=== PATIENT | male | born 1965 | race African-American/Black ===

== ENCOUNTER 2020-05-28 13:48 | Emergency (ER) | payer SELFPAY ==
[~2020-05-28] VITALS: Ht 185.4 cm; Wt 160.0 kg
[2020-05-28] MEDS ORDERED: PIPERACILLIN/TAZOBACTAM 4.5 GM in IV NORMAL SALINE 50ML 50 ML IV ONE (14:15)
[2020-05-28] MEDS ORDERED: IV NORMAL SALINE 100ML 100 ML ONE (14:58)
--- NOTE | 2020-05-28 15:01 | RAD ---
PROCEDURE: XR HAND_RIGHT 3 VIEWS, XR FOREARM_RIGHT 2 VIEWS STUDY DATE: 05/28/2020 CLINICAL INDICATION / HISTORY: Reason: ACUTE INFECTIOUS PROCESS / Spl. Instructions: / History: . TECHNIQUE: PA, lateral and oblique views of the right hand. COMPARISON: None FINDINGS: No acute fracture or dislocation is identified. There is deformity to the mid shaft of the proximal fourth phalanx with radial sided bony spurring, compatible with an old, healed fracture with residual deformity. In addition, on the ulnar aspect of the base of the third proximal phalanx, luce ncy is seen that could reflect sequelae of previous fracture. There is deformity to the fourth metaca rpal shaft, consistent with a well healed fracture. The bone density is otherwise normal. The joint s paces are maintained, and there are no erosions to suggest an inflammatory arthropathy. The soft tiss ues are unremarkable. IMPRESSION: Multiple old fractures, with deformity at the base of the proximal third phalanx at the M CP joint, likely reflecting old intra-articular fracture without complete healing. No acute or aggres sive appearing osseous lesions in the right hand on x-ray. PROCEDURE: XR HAND_RIGHT 3 VIEWS, XR FOREARM_RIGHT 2 VIEWS STUDY DATE: 05/28/2020 CLINICAL INDICATION / HISTORY: Reason: ACUTE INFECTIOUS PROCESS / Spl. Instructions: / History: . TECHNIQUE: Right forearm 2 views. AP and lateral views. COMPARISON: None FINDINGS: No fracture or dislocation is identified. The bone density appears normal. The wrist and e lbow joints are approximated. No soft tissue abnormality is seen. IMPRESSION: No abnormality identified. Electronically signed by: Jaz Miramontes MD (05/28/2020 2:58 PM) [id number]
[2020-05-28 15:07] LABS: CALCIUM 9.6 mg/dL (8.5-10.1); CREATININE 1.1 mg/dL (0.7-1.3); GFR 84.7; POTASSIUM 4.4 mmol/L (3.5-5.1)
[2020-05-28 15:08] LABS: BASO # 0.1 x10^3/uL (0.0-0.2); BASO % 1 % (0-3); EOS # 0.1 x10^3/uL (0.0-0.7); EOS % 2 % (0-3); HEMATOCRIT 41.6 % (39.0-53.0); HEMOGLOBIN 13.5 g/dL (13.0-17.5); LYMPH # 2.1 x10^3/uL (1.0-4.8); LYMPH % 25 % (24-48); MEAN CORPUSCULAR HEMOGLOBIN 30 pg (25-35); MEAN CORPUSCULAR HGB CONC 32 g/dL (31-37); MEAN CORPUSCULAR VOLUME 94 fL (79-100); MONO # 0.6 x10^3/uL (0.0-1.1); MONO % 7 % (0-9); NEUT # 5.6 x10^3uL (1.8-7.7); NEUT % 66 % (31-73); PLATELET COUNT 245 x10^3/uL (140-400); RED BLOOD COUNT 4.45 x10^6/uL (4.30-5.70); RED CELL DISTRIBUTION WIDTH 14.3 % (11.5-14.5); WHITE BLOOD COUNT 8.5 x10^3/uL (4.0-11.0)
[2020-05-28] MEDS ORDERED: IV NORMAL SALINE 50ML 50 ML ONE (15:08)
[2020-05-28] MEDS ORDERED: PIPERACILLIN/TAZOBACTAM 4.5 GM VIAL IV ONE (15:08)
--- NOTE | 2020-05-28 15:09 | PHYS DOC ---
Adult General Chief Complaint Chief Complaint: CELLULITIS HPI HPI Patient is a 55-year-old male presents emergency department with complaints of right hand and forearm swelling. Patient states he woke up at approximately 3 AM to use the restroom when he noticed his right hand with itching. Patient states that at that time his right forearm was not itching but progressed to where it started become uncomfortable for him. Patient states that his hand was swelling and he noticed his right forearm started to swell throughout the day. Patient states that he cannot close his right hand into a fist all the way related to mild discomfort and hand swelling. Patient states that he did not injure his hand, he is not sure if he was bit by an insect as he did not see any insects around and does not see any particular place on his hand or forearm that resembles an insect bite. Patient denies any numbness or tingling of the right forearm or hand or fingers. Patient denies any fever or chills, denies dizziness, denies short of breath, denies unusual salivation, denies watery eyes, denies nasal drainage, denies cough, denies chest pain, denies chest palpitations. Patient denies any rashes of his skin, denies any lesions on his skin. Patient denies any symptoms of allergic reaction or hives. Patient denies any recent loss of taste or loss of smell. Patient denies nausea, vomiting, diarrhea, or abdominal discomfort. Patient states no one else in his home is experiencing the same symptoms as he. (ISELA ROBLES APRN) Review of Systems Review of Systems 14 body systems of review of systems have been reviewed. See HPI for pertinent positives and negative responses, otherwise all other systems are negative, nonpertinent or noncontributory. (ISELA ROBLES APRN) Current Medications Current Medications Patient denies current home medications. Current Medications Medications (Trade) Dose Ordered Sig/Kevyn Start Time Stop Time Status Last Admin Dose Admin Ceftriaxone Sodium 2 gm/ Sodium Chloride 100 ml @ 200 mls/hr 1X ONCE 05/28/20 14:15 05/28/20 14:44 DC Ceftriaxone Sodium (Rocephin) 2 gm STK-MED ONCE 05/28/20 14:58 05/28/20 14:59 DC Piperacillin Sod/ Tazobactam Sod 4.5 gm/Sodium Chloride 50 ml @ 100 mls/hr 1X ONCE 05/28/20 14:15 05/28/20 14:44 DC Sodium Chloride 100 ml @ As Directed STK-MED ONCE 05/28/20 14:58 05/28/20 14:59 DC (ISELA ROBLES APRN) Allergies Allergies Allergies Coded Allergies Type Severity Reaction Last Updated Verified No Known Drug Allergies 05/28/20 No (ISELA ROBLES APRN) Physical Exam Physical Exam Constitutional: Well developed, well nourished, no acute distress, non-toxic appearance. HENT: Normocephalic, atraumatic, bilateral external ears normal, oropharynx moist, no oral exudates, nose normal. Eyes: PERRLA, EOMI, conjunctiva normal, no discharge. Neck: Normal range of motion, no tenderness, supple, no stridor. Cardiovascular:Heart rate regular rhythm, no murmur Lungs & Thorax: Bilateral breath sounds clear to auscultation Abdomen: Bowel sounds normal, soft, no tenderness, no masses, no pulsatile masses. Skin: Warm, dry, no rash. Mild erythema to dorsal skin surface right hand and anterior skin surface right forearm extending 10 cm proximal to wrist. Red streaking not appreciated. Back: No tenderness, no CVA tenderness. Extremities: No tenderness, no cyanosis, no clubbing, ROM intact, no edema. Right hand full extension of phalanges, patient unable to close fist completely related to mild swelling to dorsal surface right hand, palmar surface without visual discrepancies, patient has an area of induration that extends from his wrist 10 cm proximal into forearm. No loss of sensation, distal cap refill less than 2 seconds, no compartment syndrome appreciated, patient is neurovascular intact. No skin lesions appreciated, no drainage noted. Skin intact. Neurologic: Alert and oriented X 3, normal motor function, normal sensory function, no focal deficits noted. Psychologic: Affect normal, judgement normal, mood normal. (ISELA ROBLES APRN) Current Patient Data Vital Signs Patient's vital signs were stable and within normal limits during physical exam. Lab Results Laboratory Tests Test 05/28/20 14:30 White Blood Count 8.5 x10^3/uL Red Blood Count 4.45 x10^6/uL Hemoglobin 13.5 g/dL Hematocrit 41.6 % Mean Corpuscular Volume 94 fL Mean Corpuscular Hemoglobin 30 pg Mean Corpuscular Hemoglobin Concent 32 g/dL Red Cell Distribution Width 14.3 % Platelet Count 245 x10^3/uL Neutrophils (%) (Auto) 66 % Lymphocytes (%) (Auto) 25 % Monocytes (%) (Auto) 7 % Eosinophils (%) (Auto) 2 % Basophils (%) (Auto) 1 % Neutrophils # (Auto) 5.6 x10^3uL Lymphocytes # (Auto) 2.1 x10^3/uL Monocytes # (Auto) 0.6 x10^3/uL Eosinophils # (Auto) 0.1 x10^3/uL Basophils # (Auto) 0.1 x10^3/uL Sodium Level 137 mmol/L Potassium Level 4.4 mmol/L Chloride Level 101 mmol/L Carbon Dioxide Level 30 mmol/L Anion Gap 6 Blood Urea Nitrogen 11 mg/dL Creatinine 1.1 mg/dL Estimated GFR (Cockcroft-Gault) 84.7 BUN/Creatinine Ratio 10 Glucose Level 75 mg/dL Lactic Acid Level 2.0 mmol/L Calcium Level 9.6 mg/dL Total Bilirubin 0.2 mg/dL Aspartate Amino Transf (AST/SGOT) 19 U/L Alanine Aminotransferase (ALT/SGPT) 23 U/L Alkaline Phosphatase 76 U/L Total Protein 7.6 g/dL Albumin 4.0 g/dL Albumin/Globulin Ratio 1.1 Current Medications Medications (Trade) Dose Ordered Sig/Kevyn Route PRN Reason Start Time Stop Time Status Last Admin Dose Admin Piperacillin Sod/ Tazobactam Sod 4.5 gm/Sodium Chloride 50 ml @ 100 mls/hr 1X ONCE IV 05/28/20 14:15 05/28/20 14:44 DC 05/28/20 14:15 Ceftriaxone Sodium 2 gm/ Sodium Chloride 100 ml @ 200 mls/hr 1X ONCE IV 05/28/20 14:15 05/28/20 14:44 DC 05/28/20 15:10 Ceftriaxone Sodium (Rocephin) 2 gm STK-MED ONCE IV 05/28/20 14:58 05/28/20 14:59 DC Sodium Chloride 100 ml @ As Directed STK-MED ONCE .ROUTE 05/28/20 14:58 05/28/20 14:59 DC Sodium Chloride 50 ml @ As Directed STK-MED ONCE .ROUTE 05/28/20 15:08 05/28/20 15:08 DC Piperacillin Sod/ Tazobactam Sod (Zosyn) 4.5 gm STK-MED ONCE IV 05/28/20 15:08 05/28/20 15:08 DC (ISELA ROBLES APRN) EKG EKG [] (ISELA ROBLES APRN) Radiology/Procedures Radiology/Procedures STATUS: REG ER ORD. PHYSICIAN: ISELA ROBLES APRN REASON: ACUTE INFECTIOUS PROCESS PROCEDURE: HAND RIGHT 3V PROCEDURE: XR HAND_RIGHT 3 VIEWS, XR FOREARM_RIGHT 2 VIEWS STUDY DATE: 05/28/2020 CLINICAL INDICATION / HISTORY: Reason: ACUTE INFECTIOUS PROCESS / Spl. Instructions: / History: . TECHNIQUE: PA, lateral and oblique views of the right hand. COMPARISON: None FINDINGS: No acute fracture or dislocation is identified. There is deformity to the mid shaft of the proximal fourth phalanx with radial sided bony spurring, compatible with an old, healed fracture with residual deformity. In addition, on the ulnar aspect of the base of the third proximal phalanx, lucency is seen that could reflect sequelae of previous fracture. There is deformity to the fourth metacarpal shaft, consistent with a well healed fracture. The bone density is otherwise normal. The joint spaces are maintained, and there are no erosions to suggest an inflammatory arthropathy. The soft tissues are unremarkable. IMPRESSION: Multiple old fractures, with deformity at the base of the proximal third phalanx at the MCP joint, likely reflecting old intra-articular fracture without complete healing. No acute or aggressive appearing osseous lesions in the right hand on x-ray. PROCEDURE: XR HAND_RIGHT 3 VIEWS, XR FOREARM_RIGHT 2 VIEWS STUDY DATE: 05/28/2020 CLINICAL INDICATION / HISTORY: Reason: ACUTE INFECTIOUS PROCESS / Spl. Instructions: / History: . TECHNIQUE: Right forearm 2 views. AP and lateral views. COMPARISON: None FINDINGS: No fracture or dislocation is identified. The bone density appears normal. The wrist and elbow joints are approximated. No soft tissue abnormality is seen. IMPRESSION: No abnormality identified. Electronically signed by: Emmanuelle Miramontes MD (05/28/2020 2:58 PM) [id number] DICTATED AND SIGNED BY: EMMANUELLE MIRAMONTES MD DATE: 05/28/20 1454 CC: ISELA ROBLES APRN; SHAUNA WAY DO; PCP,NO ~MTH0 0 Impressions: Primary impression: Cellulitis of the right forearm and hand. (ISELA ROBLES APRN) Heart Score Risk Factors: Risk Factors: DM, Current or recent (<one month) smoker, HTN, HLP, family history of CAD, obesity. Risk Scores: Risk Factors: DM, Current or recent (<one month) smoker, HTN, HLP, family history of CAD, obesity. (ISELA ROBLES APRN) Course & Med Decision Making Course & Med Decision Making Pertinent Labs and Imaging studies reviewed. (See chart for details) 55-year-old male presents emergency department complaining of itching and redness with swelling to the right hand and distal forearm. Concerning for tissue infection versus allergic reaction. Area was erythematous with induration noted and physical exam. Patient's labs were drawn and resulted unremarkable for infectious process, however an IV was established and 4.5 g Zosyn followed by 2 g Rocephin were given IV. This is nonconcerning for deep tissue infection, unlikely compartment syndrome. The patient's vital signs were stable throughout ER stay. The patient was not hyperthermic nor hypothermic. Areas of erythema and induration were marked with skin marker, discussed inpatient treatment versus home trial with antibiotics, patient has decided he will will try home trial of p.o. antibiotics, patient given strict return to ER precautions with recommendations of inpatient treatment if needed. Patient gave verbal understanding of home care instructions, follow-up with his doctor soon for reevaluation, return to emergency department for worsening signs and sympto ms, patient had no further questions or concerns, patient discharged home without incident. (ISELA ROBLES APRN) Course & Med Decision Making I oversaw on the above date of service of this patient and discussed the care with the MILL FEEDER. I personally saw patient and repeated certain aspects of history and physical exam. No emergent and/or surgical findings but patient presentation consistent for cellulitis requiring antibiotic intervention and close outpatient follow-up to avoid potential need for admission and subsequent IV antibiotics. Overall, I agree with the findings, plan of care, and dispo sition as documented. (SHAUNA WAY DO) Dragon Disclaimer Dragon Disclaimer This electronic medical record was generated, in whole or in part, using a voice recognition dictation system. (ISELA ROBLES APRN) Departure Departure: Impression: Primary Impression: Cellulitis Disposition: 01 DC HOME SELF CARE/HOMELESS Condition: STABLE Referrals: PCP,NO (PCP) Patient Instructions: Cellulitis Additional Instructions: You have a skin infection of the right forearm and hand that we call cellulitis, we have discussed inpatient treatment versus home trial with antibiotics. You have elected to try antibiotics by mouth at home. Please return to the em ergency department immediately for consideration of inpatient treatment if the skin infection is not considerably better by tomorrow or worsens. Please follow-up with your primary care physician within 3 days for a reevaluation of your skin infection. You will be taken Augmentin 2 times a day for the next 10 days. EMERGENCY DEPARTMENT GENERAL DISCHARGE INSTRUCTIONS Thank you for coming to [facility] (ED) today and trusting us with you care. We trust that you had a positivie experience in our Emergency Department. If you wish to speak to the department management, you may call the director at [phone]. YOUR FOLLOW UP INSTRUCTIONS ARE FOLLOWS: 1. Do you have a private Doctor? If you do not have a private doctor, please a sk for a resource list of physicians or clinics that may be able to assist you with follow up care. 2. The Emergency Physician has interpreted your x-rays. The X-Ray specialist will also review them. If there is a change in the findings, you will be notified in 48 hours when at all possible. 3. A lab test or culture has been done, your results will be reviewed and you will be notified if you need a change in treatment. ADDITIONAL INSTRUCTIONS AND INFORMATION: 1. Your care today has been supervised by a physician who is specially trained in emergency care. Many problems require more than one evaluation for a complete diagnosis and treatment. We recommend that you schedule your follow up appointment as recommended to ensure complete treatment of you illness or injury. If you are unable to obtain follow up care and continue to have a problem, or if your condition worsens, we recommend that you return to the ED. 2. We are not able to safely determine your condition over the phone nor are we able to give sound medical advice over the phone. For these safety reasons, if you call for medical advice we will ask you to come to the ED for further evaluation. 3. If you have any questions regarding these discharge instructions please call the ED at [phone]. SAFETY INFORMATION: In the interest of safety, wellness, and injury prevention; we encourage you to wear your sealbelt, if you smoke; quite smoking, and we encourage family to use a protective helmet for bicycling and other sporting events that present an increased risk for head injury. IF YOUR SYMPTOMS WORSEN OR NEW SYMPTOMS DEVELOP, OR YOU HAVE CONCERNS ABOUT YOUR CONDITION; OR IF YOUR CONDITION WORSENS WHILE YOU ARE WAITING FOR YOUR FOLLOW UP APPOINTMENT; EITHER CONTACT YOUR PRIMARY CARE DOCTOR, THE PHYSICIAN WHOSE NAME AND NUMBER YOU WERE GIVEN, OR RETURN TO THE ED IMMEDIATELY. Scripts Amoxicillin/Potassium Clav (AUGMENTIN 875-125 TABLET) 1 Each Tablet 1 TAB PO BID for SKIN INFECTION for 10 Days, #20 TAB 0 Refills Prov: ISELA ROBLES APRN 05/28/20 Problem Qualifiers Primary Impression: Cellulitis Site of cellulitis: extremity Site of cellulitis of extremity: upper extremity Laterality: right Qualified Codes: L03.113 - Cellulitis of right upper limb ISELA ROBLES APRN May 28, 2020 15:[address] DO May 29, 2020 07:22
[2020-05-28 15:21] LABS: ALBUMIN/GLOBULIN RATIO 1.1 (1.0-1.7); TOTAL BILIRUBIN 0.2 mg/dL (0.2-1.0); TOTAL PROTEIN 7.6 g/dL (6.4-8.2)
[2020-05-28] MEDS ORDERED: AMOX1TAB61 PO (16:00)
[2020-05-28 20:24] VITALS: BP 140/90
== END 2020-05-28 16:13 | disposition home or self-care (01) ==
LOC: ER 13:48
DX: L03.113 Cellulitis of right upper limb (principal)
CPT/HCPCS: 36415; 73090; 73130; 80053; 83605; 85025; 87040; 96365; 96366; 99284; J0696; J2543

== ENCOUNTER 2020-05-30 15:27 | Emergency (ER) | payer SELFPAY ==
[~2020-05-30] VITALS: Ht 185.4 cm; Wt 73.3 kg
[~2020-05-30 15:27] MED LIST: AMOX1TAB61 PO
[2020-05-30 15:40] VITALS: BP 151/93
--- NOTE | 2020-05-30 16:14 | PHYS DOC ---
Past History Past Medical History: Hypertension (RADHA MARSHALL APRN) Past Surgical History: No Surgical History (RADHA MARSHALL APRN) Alcohol Use: None (RADHA MARSHALL APRN) General Adult EDM: Chief Complaint: ALLERGIC REACTION HPI: HPI: Patient is a 55-year-old male who presents with lip swelling. Patient states he was seen here on Wednesday for cellulitis to his right arm and placed on Augmentin. States that he took his second dose this morning and about 3 hours ago started having left-sided lower lip swelling. Patient denies trouble breathing, cough, itching. (RADHA MARSHALL APRN) Review of Systems: Review of Systems: Constitutional: Denies fever or chills Eyes: Denies change in visual acuity HENT: Denies nasal congestion or sore throat Respiratory: Denies cough or shortness of breath Cardiovascular: Denies chest pain or edema GI: Denies abdominal pain, nausea, vomiting, bloody stools or diarrhea : Denies dysuria Musculoskeletal: Denies back pain or joint pain Integument: Denies rash Neurologic: Denies headache, focal weakness or sensory changes Endocrine: Denies polyuria or polydipsia Lymphatic: Denies swollen glands Psychiatric: Denies depression or anxiety (RADHA MARSHALL APRN) Current Medications: Current Meds: Current Medications Medications (Trade) Dose Ordered Sig/Kevyn Start Time Stop Time Status Last Admin Dose Admin Diphenhydramine HCl (Benadryl) 25 mg 1X ONCE 05/30/20 16:15 05/30/20 16:16 UNV Famotidine (Pepcid) 20 mg 1X ONCE 05/30/20 16:15 05/30/20 16:16 UNV (RADHA MARSHALL APRN) Allergies: Allergies: Allergies Coded Allergies Type Severity Reaction Last Updated Verified No Known Drug Allergies 05/28/20 No (RADHA MARSHALL APRN) Physical Exam: PE: Constitutional: Well developed, well nourished, no acute distress, non-toxic appearance. [] HENT: Normocephalic, atraumatic, bilateral external ears normal, oropharynx moist, no oral exudates, nose normal. [] Eyes: PERRLA, EOMI, conjunctiva normal, no discharge. [] Neck: Normal range of motion, no tenderness, supple, no stridor. [] Cardiovascular:Heart rate regular rhythm, no murmur [] Lungs & Thorax: Bilateral breath sounds clear to auscultation [] Abdomen: Bowel sounds normal, soft, no tenderness, no masses, no pulsatile masses. [] Skin: Warm, dry, no erythema, no rash. Lip swelling to left lower lip. Back: No tenderness, no CVA tenderness. [] Extremities: No tenderness, no cyanosis, no clubbing, ROM intact, no edema. [] Neurologic: Alert and oriented X 3, normal motor function, normal sensory function, no focal deficits noted. [] Psychologic: Affect normal, judgement normal, mood normal. [] (RADHA MARSHALL APRN) Current Patient Data: Vital Signs: Vital Signs Date Time Temp Pulse Resp B/P (MAP) Pulse Ox O2 Delivery O2 Flow Rate FiO2 05/30/20 15:40 98.1 77 16 151/93 (112) 96 Room Air (RADHA MARSHALL APRN) EKG: EKG: [] (RADHA MARSHALL APRN) Radiology/Procedures: Radiology/Procedures: [] (RADHA MARSHALL APRN) Heart Score: Risk Factors: Risk Factors: DM, Current or recent (<one month) smoker, HTN, HLP, family history of CAD, obesity. Risk Scores: Score 0 - 3: 2.5% MACE over next 6 weeks - Discharge Home Score 4 - 6: 20.3% MACE over next 6 weeks - Admit for Clinical Observation Score 7 - 10: 72.7% MACE over next 6 weeks - Early Invasive Strategies (RADHA MARSHALL APRN) Course & Med Decision Making: Course & Med Decision Making Pertinent Labs and Imaging studies reviewed. (See chart for details) [] 55-year-old male presents with lip swelling. Patient was seen here Wednesday and prescribed Augmentin for cellulitis to left arm. Patient is hemodynamically stable. Patient denies trouble breathing or itching. We will prescribe Pepcid, Benadryl in the ER. DC home with Medrol Dosepak and Keflex. Patient instructed to stop taking Augmentin. (RADHA MARSHALL APRN) Dragon Disclaimer: Dragon Disclaimer: This electronic medical record was generated, in whole or in part, using a voice recognition dictation system. (RADHA MARSHALL APRN) Attending Co-Sign Patient seen under my care in ER. I discussed case at length with CAUL DRESSER. Not angioedema, appears mild reaction to previously RX Augmentin. I agree to findings, plan of care and dispo as written. (SHAUNA WAY DO) Departure Departure: Impression: Primary Impression: Allergic reaction caused by a drug Disposition: 01 DC HOME SELF CARE/HOMELESS Condition: STABLE Referrals: PCP,NO (PCP) Patient Instructions: Drug Allergy Additional Instructions: DISCONTINUE AUGMENTIN DUE TO ALLERGIC REACTION. START TAKING NEW ANTIBIOTIC. IF YOU HAVE TROUBLE BREATHING OR WORSENING SYMPTOMS PLEASE RETURN TO THE ED. Thank you for coming to [facility] ([facility]) today and trusting us with you care. We trust that you had a positivie experience in our Emergency Department. If you wish to speak to the department management, you may call the director at [phone]. YOUR FOLLOW UP INSTRUCTIONS ARE FOLLOWS: 1. Do you have a private Doctor? If you do not have a private doctor, please ask for a resource list of physicians or clinics that may be able to assist you with follow up care. 2. The Emergency Physician has interpreted your x-rays. The X-Ray specialist will also review them. If there is a change in the findings, you will be notified in 48 hours when at all possible. 3. A lab test or culture has been done, your results will be reviewed and you will be notified if you need a change in treatment. ADDITIONAL INSTRUCTIONS AND INFORMATION: 1. Your care today has been supervised by a physician who is specially trained in emergency care. Many problems require more than one evaluation for a complete diagnosis and treatment. We recommend that you schedule your follow up appointment as recommended to ensure complete treatment of you illness or injury. If you are unable to obtain follow up care and continue to have a problem, or if your condition worsens, we recommend that you return to the ED. 2. We are not able to safely determine your condition over the phone nor are we able to give sound medical advice over the phone. For these safety reasons, if you call for medical advice we will ask you to come to the ED for further evaluation. 3. If you have any questions regarding these discharge instructions please call the ED at [phone]. SAFETY INFORMATION: In the interest of safety, wellness, and injury prevention; we encourage you to wear your sealbelt, if you smoke; quite smoking, and we encourage family to use a protective helmet for bicycling and other sporting events that present an increased risk for head injury. IF YOUR SYMPTOMS WORSEN OR NEW SYMPTOMS DEVELOP, OR YOU HAVE CONCERNS ABOUT YOUR CONDITION; OR IF YOUR CONDITION WORSENS WHILE YOU ARE WAITING FOR YOUR FOLLOW UP APPOINTMENT; EITHER CONTACT YOUR PRIMARY CARE DOCTOR, THE PHYSICIAN WHOSE NAME AND NUMBER YOU WERE GIVEN, OR RETURN TO THE ED IMMEDIATELY. Scripts Methylprednisolone (MEDROL) 4 Mg Tab.ds.pk 1 PKG PO UD for inflammation for 6 Days, #1 PKG 0 Refills Prov: RADHA MARSHALL APRN 05/30/20 Cephalexin (KEFLEX) 500 Mg Capsule 1000 GM PO BID for INFECTION for 7 Days, #14 CAP Prov: RADHA MARSHALL APRN 05/30/20 RADHA MARSHALL APRN May 30, 2020 16:[address] DO May 31, 2020 16:51
[2020-05-30] MEDS ORDERED: FAMOTIDINE 20 MG TABLET PO ONE (16:15)
[2020-05-30] MEDS ORDERED: diphenhydrAMINE HCL 25 MG CAPSULE PO ONE (16:15)
[2020-05-30] MEDS ORDERED: CEPH-264 PO (16:22)
[2020-05-30] MEDS ORDERED: METH4TAB2 PO (16:29)
== END 2020-05-30 16:25 | disposition home or self-care (01) ==
LOC: ER 15:27
DX: T78.40XA Allergy, unspecified, initial encounter (principal); I10 Essential (primary) hypertension; X58.XXXA Exposure to other specified factors, initial encounter
CPT/HCPCS: 99283; Q0163

== ENCOUNTER 2021-03-26 20:08 | Emergency (ER) | payer BC ==
[~2021-03-26] VITALS: Ht 185.4 cm; Wt 68.4 kg
[~2021-03-26 20:08] MED LIST changes: +CEPH-264 PO; +METH4TAB2 PO
--- NOTE | 2021-03-26 20:28 | RAD ---
EXAM: CT Head without IV contrast CLINICAL HISTORY: Reason: CODE STROKE, SLURRED SPEECH,WEAKNESS X 1.5 HOURS / Spl. Instructions: / Hi story: COMPARISON: None. TECHNIQUE: Routine CT of the head without contrast. PQRS compliance statement - One or more of the following individualized dose reduction techniques wer e utilized for this study: 1. Automated exposure control 2. Adjustment of the mA and/or kV according to patient size 3. Use of iterative reconstruction technique FINDINGS: There is no evidence of hemorrhage, mass or extra-axial fluid collection. [place]-white differentiation is maintained with no evidence of edema. There is no mass effect or shift of the intracranial structures. The ventricles, basilar cisterns and cortical sulci are normal in size and configuration for the brandon ents stated age. The cerebellum and brainstem are unremarkable. The calvarium demonstrates no evidence of fracture or focal lesion. Mild thickening of the right maxillary sinus. Otherwise, there is normal aeration of the visualized p aranasal sinuses and mastoid air cells. The visualized portions of the orbits are normal. IMPRESSION: 1. No evidence for acute intracranial process. 2. Mild right maxillary sinus disease. Findings discussed with Randall Davis at 03/26/2021 8:23 PM. FOR INTERNAL CODING PURPOSES RESULT CODE: (C) Electronically signed by: Higinio Sanabria MD (03/26/2021 8:25 PM) YOLETTE
--- NOTE | 2021-03-26 20:30 | PHYS DOC ---
Past History Past Medical History: Hypertension Past Surgical History: No Surgical History Alcohol Use: None Adult General Chief Complaint Chief Complaint: NEURO SYMPTOMS/DEFICITS HPI HPI Patient is a 55-year-old male with a past medical history significant for hypertension who presents to the emergency department with a chief complaint of just feeling weird and feels like he is unable to think. Patient states he has been drinking alcohol today and had several beers and also smoked marijuana. States he is never felt like this before. Denies any recent travels, traumas, illnesses, fevers, chest pain, shortness of breath, abdominal pain, nausea, vomiting. Denies any numbness/weakness/tingling. Denies any trouble sitting, standing or walking. Denies any trouble speaking. Denies any trouble or pain swallowing. Review of Systems Review of Systems Review of systems otherwise unremarkable except noted in HPI Allergies Allergies Allergies Coded Allergies Type Severity Reaction Last Updated Verified No Known Drug Allergies 05/28/20 No Physical Exam Physical Exam Constitutional: Well developed, well nourished, no acute distress, non-toxic appearance. [] HENT: Normocephalic, atraumatic, bilateral external ears normal, oropharynx moist, no oral exudates, nose normal. [] Eyes: PERRLA, EOMI, conjunctiva normal, no discharge. [] Neck: Normal range of motion, no tenderness, supple, no stridor. [] Cardiovascular:Heart rate regular rhythm, no murmur [] Lungs & Thorax: Bilateral breath sounds clear to auscultation [] Abdomen: Bowel sounds normal, soft, no tenderness, no masses, no pulsatile masses. [] Skin: Warm, dry, no erythema, no rash. [] Back: No tenderness, no CVA tenderness. [] Extremities: No tenderness, no cyanosis, no clubbing, ROM intact, no edema. [] Neurologic: Alert and oriented X 3, normal motor function, normal sensory function, able to sit, stand and walk without issue no focal deficits noted, NIH of 0. [] Psychologic: Affect normal, mood normal. [] Current Patient Data Lab Results Laboratory Tests Test 03/26/21 20:11 Glucose (Fingerstick) 107 mg/dL (70-99) H EKG EKG [] Radiology/Procedures Radiology/Procedures [] Heart Score C/O Chest Pain: No Risk Factors: Risk Factors: DM, Current or recent (<one month) smoker, HTN, HLP, family history of CAD, obesity. Risk Scores: Risk Factors: DM, Current or recent (<one month) smoker, HTN, HLP, family history of CAD, obesity. Course & Med Decision Making Course & Med Decision Making Patient is a 55-year-old male who presents with a chief complaint of feeling we ird and having trouble speaking Vital signs initially notable for tachycardia and hypertension which resolved in the ED. Physical exam noted above. CT of the head normal. Laboratory analysis not concerning. Alcohol level elevated. After some time in the emergency department patient stated that he thinks he just had too much to drink and too much marijuana smoke, feels fine and wants to go home. Discussed all findings with patient and advised on ceasing alcohol and marijuana intake. Advised to follow-up in the morning with primary care physician. Gave strict return precautions to the ED. Patient grateful, verbalized understanding and agreed with plan of discharge Dragon Disclaimer Dragon Disclaimer This electronic medical record was generated, in whole or in part, using a voice recognition dictation system. Departure Departure: Impression: Primary Impression: Acute alcohol intoxication Additional Impression: Marijuana intoxication Disposition: HOME / SELF CARE / HOMELESS Condition: GOOD Referrals: PCP,NO (PCP) CIRA GIL MD Patient Instructions: Alcohol Intoxication, Marijuana Abuse-Brief Additional Instructions: Thank you for coming into the emergency department tonight and allowing us to take care of you. Please read the attached information carefully to go over things we discussed. Please try to cease or cut back on your alcohol intake and cease using marijuana unless prescribed by physician. Please follow-up in the morning with your primary care physician to update on ED visit and set up a follow-up. Please come back to the emergency department with new or concerning symptoms as we discussed. Problem Qualifiers ASTON SOLANO MD Mar 26, 2021 20:30
[2021-03-26 20:37] LABS: BASO # 0.1 x10^3/uL (0.0-0.2); BASO % 1 % (0-3); EOS # 0.1 x10^3/uL (0.0-0.7); EOS % 2 % (0-3); HEMATOCRIT 33.7 % (39.0-53.0); HEMOGLOBIN 11.1 g/dL (13.0-17.5); LYMPH # 2.2 x10^3/uL (1.0-4.8); LYMPH % 33 % (24-48); MEAN CORPUSCULAR HEMOGLOBIN 30 pg (25-35); MEAN CORPUSCULAR HGB CONC 33 g/dL (31-37); MEAN CORPUSCULAR VOLUME 92 fL (79-100); MONO # 0.6 x10^3/uL (0.0-1.1); MONO % 10 % (0-9); NEUT # 3.7 x10^3uL (1.8-7.7); NEUT % 55 % (31-73); PLATELET COUNT 239 x10^3/uL (140-400); RED BLOOD COUNT 3.69 x10^6/uL (4.30-5.70); WHITE BLOOD COUNT 6.8 x10^3/uL (4.0-11.0)
[2021-03-26 20:44] LABS: CALCIUM 8.6 mg/dL (8.5-10.1); CREATININE 1.1 mg/dL (0.7-1.3); GFR 84.7; POTASSIUM 3.3 mmol/L (3.5-5.1)
[2021-03-26 20:51] LABS: ALBUMIN/GLOBULIN RATIO 1.3 (1.0-1.7); TOTAL BILIRUBIN 0.2 mg/dL (0.2-1.0)
--- NOTE | 2021-03-26 21:10 | EKG ---
[address] [address] Test Date: 2021-03-26 Test Time: 20:22:27 Pat Name: PEREZ GUTIERREZROSEMARY Department: Room: Gender: M Pamphlet Distributor: KATERYNA : 1965 Requested By: ASTON SOLANO Order Number: [id number] Reading MD: Measurements Intervals [place] Rate: 97 P: 48 NH: 168 QRS: 38 QRSD: 94 T: 47 QT: 368 QTc: 472 Interpretive Statements SINUS RHYTHM LEFT ATRIAL ABNORMALITY ABNORMAL ECG RI6.02 No previous ECG available for comparison
[2021-03-26 21:27] VITALS: BP 141/86
== END 2021-03-26 21:54 | disposition home or self-care (01) ==
LOC: ER 20:08
DX: F10.229 Alcohol dependence with intoxication, unspecified (principal); F12.929 Cannabis use, unspecified with intoxication, unspecified; I10 Essential (primary) hypertension; Y90.8 Blood alcohol level of 240 mg/100 ml or more
CPT/HCPCS: 36415; 70450; 80053; 82947; 84484; 85025; 93005; 99285; G0480